=== PATIENT | male | born 1950 | race Caucasian/White ===

== ENCOUNTER 2019-03-25 01:12 | Inpatient (IN) | payer OTHER ==
[2019-03-25 01:39] LABS: #Eosinphils 0.1 thou/uL (0.0-0.7); #Lymphocytes 1.7 thou/uL (1.20-3.40); #Monocytes 0.6 thou/uL (0.11-0.59); #Neutrophils 8.6 thou/uL (1.40-6.50); %Basophils 0.4 % (0.0-1.0); %Eosinophils 0.6 % (0.0-10.0); %Lymphocytes 15.3 % (21.0-51.0); %Monocytes 5.6 % (0.0-10.0); Hemoglobin 16.6 g/dL (14.0-18.0); Mean Corpuscular HGB CONC 34.3 g/dL (32.0-36.0); Mean Corpuscular Hemoglobin 28.3 pg (27.0-31.0); Mean Corpuscular Volume 82.5 fL (78.0-98.0); Mean Platelet Volume 7.7 fL (7.4-10.4); Platelet Count 253 thou/uL (130-400); RBC Distribution Width 12.9 % (11.5-14.5); Red Blood Cell (RBC) Count 5.87 mill/uL (4.70-6.10); White Blood Cell (WBC) Count 11.1 thou/uL (4.8-10.8)
[2019-03-25 02:04] LABS: ALT (SGPT) 12 U/L (8-55); AST (SGOT) 10 U/L (5-34); Alkaline Phosphatase 162 U/L (40-150); Anion Gap 14 mmol/L (10-20); BUN (Urea Nitrogen) 11 mg/dL (8.4-25.7); Bilirubin, Total 0.5 mg/dL (0.2-1.2); Calc. Creatinine Clearance 0 mL/min (70-130); Calcium 9.6 mg/dL (7.8-10.44); Carbon Dioxide 25 mmol/L (23-31); Chloride 101 mmol/L (98-107); Estimated GFR-MDRD Greater than 90; Globulin 3.2 g/dL (2.4-3.5); Glucose 422 mg/dL (80-115); Potassium 4.3 mmol/L (3.5-5.1); Protein, Total 7.2 g/dL (5.8-8.1); Sodium 136 mmol/L (136-145)
[2019-03-25 02:27] LABS: CKMB 3.9 ng/mL (0-6.6)
--- NOTE | 2019-03-25 07:39 | RAD ---
XR Chest 1 View Portable HISTORY: Chest pain COMPARISON: None FINDINGS: The heart size is normal. The lungs are well expanded without pneumothorax or pleural effusions. Mild infiltrates are seen in the right mid and lower lung zones.
[2019-03-25 08:45] VITALS: BMI 27.2
[2019-03-25 09:50] LABS: Troponin I 0.586 ng/mL (< 0.028)
[2019-03-25] MEDS ORDERED: Nitroglycerin 0.4 MG TAB (25 Tab Bottle) PO PRN (09:52)
[2019-03-25] MEDS ORDERED: Dextrose 5% in Water 1,000 ML IV PRN (09:55)
[2019-03-25] MEDS ORDERED: HumaLOG 300 UNITS/3 ML VIAL SC PRN (09:55)
[2019-03-25] MEDS ORDERED: Dextrose 50% Abboject 50 ML SYRINGE SLOW IVP PRN (09:55)
[2019-03-25] MEDS ORDERED: Aspirin 325 MG TAB PO SCH (10:00)
[2019-03-25] MEDS ORDERED: Metoprolol Tartrate 25 MG TAB PO SCH (10:00)
[2019-03-25] MEDS ORDERED: Lisinopril 10 MG TAB PO SCH (10:00)
[2019-03-25] MEDS ORDERED: Aspirin 81 mg Enteric Coated Tablet PO SCH (10:00)
[2019-03-25] MEDS ORDERED: Nitroglycerin 2% Ointment 1 INCH/1 GM Packet TOP PRN (10:01)
[2019-03-25] MEDS ORDERED: Labetalol HCl 100 MG/20 ML VIAL SLOW IVP PRN (10:07)
[2019-03-25] MEDS ORDERED: Acetaminophen 500 MG TAB PO PRN (10:07)
[2019-03-25] MEDS ORDERED: Ondansetron PF 4 MG/2 ML Vial IVP PRN (10:07)
[2019-03-25] MEDS ORDERED: Enoxaparin Sodium 80 MG/0.8 ML SYRINGE SC SCH ×2 (10:15→21:00)
--- NOTE | 2019-03-25 10:59 | HP ---
CHIEF COMPLAINT: Chest pain. HISTORY OF PRESENT ILLNESS: Mr. Nina is a 68-year-old male, currently incarcerated at the [facility] in [place], with past medical history significant for untreated type 2 diabetes mellitus, previous MT x2 (unknown type), COPD, and hypertension, who presented to the hospital with complaint of chest pain. The patient stated that his chest pain started yesterday evening, and states that he felt it was instigated by some paint fumes. The patient describes the chest discomfort as pressure on the left side of his chest, which radiated to the left arm. Associated symptoms included shortness of breath. The patient denied any nausea, vomiting, or diaphoresis. He was given sublingual nitroglycerin at his senior care, however, this did not alleviate his pain, and EMS was called. Upon arrival to our facility, workup has included an EKG, which showed a left bundle branch block and sinus tachycardia with initial ventricular rate of 109. His initial troponin was indeterminate at 0.191, however, second troponin elevated at 0.586. At the time of my interview, the patient is chest pain free. The patient states that he had a stress test approximately 4 years ago. He states his last MT was approximately 10 years ago. He has been noncompliant with his diabetic medication, and refuses any type of medication at the present. He is unfamiliar with his cardiac history and does not recall left heart catheterization or stent placement in the past. REVIEW OF SYSTEMS: Twelve-point review of systems performed and is negative except that stated above. ALLERGIES: LEVOTHYROXINE. HOME MEDICATIONS: The patient states that he currently refuses all medications. His previous medication list included; 1. Aspirin 81 mg daily. 2. Glipizide 5 mg daily. 3. Lisinopril 10 mg daily. 4. Metoprolol tartrate 50 mg tablet one tablet p.o. b.i.d. 5. Pravastatin 40 mg at bedtime. The patient does state that he is compliant with aspirin 81, as well as sublingual nitroglycerin p.r.n. PAST MEDICAL HISTORY: COPD, MT x2, unknown type, untreated diabetes mellitus which is currently uncontrolled, history of hog attack rendering the patient nonambulatory and in a wheelchair secondary to back and hip injury, coronary artery disease, hypertension. SURGICAL HISTORY: The patient has had prior back and right hip surgery. He has had penile reconstruction/unknown, which the patient now uses straight catheter in which to void/urinate. SOCIAL HISTORY: The patient tells me that he has been incarcerated for the past ten and half years and has not had any cigarettes or used any alcohol or illicit drugs in that ten and half years. FAMILY HISTORY: Significant for coronary artery disease and peripheral vascular disease in his mother. PHYSICAL EXAMINATION: VITAL SIGNS: Blood pressure 180/96, pulse 110, O2 saturation is 94% on 2 L via nasal cannula, temperature 97.5. GENERAL: The patient is a middle-aged male, resting comfortably in bed, in no acute distress. HEENT: Head is atraumatic and normocephalic. Mucous membranes are moist. NECK: Trachea is midline. No obvious JVD. CV: S1 and S2. Regular rhythm, mildly tachycardic. No appreciable murmurs, rubs, or gallops. LUNGS: Regular respiratory rate and pattern, overall clear to auscultation bilaterally. ABDOMEN: Positive bowel sounds. Soft, nontender. EXTREMITIES: No edema. SKIN: Warm and dry. Multiple tattoos noted. EXTREMITIES: No edema. The patient is overall nonfocal. He does have bilateral lower extremity weakness, which is known. Cranial nerves 2 through 12 are grossly intact. LABORATORY DATA: White blood cell count 11.1, hemoglobin 16.6, hematocrit 48.4, platelet is 253. D-dimer negative at 0.37. Sodium 136, potassium 4.3, BUN 11, creatinine 0.81. AST 10, ALT 12, alkaline phosphatase 162. Troponin 0.191, 0.586 respectively. ASSESSMENT: 1. Acute coronary syndrome/[id number] myocardial infarction. 2. History of myocardial infarction x2. 3. Coronary artery disease. 4. Uncontrolled type 2 diabetes mellitus. 5. Hypertension. 6. Chronic obstructive pulmonary disease. 7. Nonambulatory state secondary to back injury. 8. Penile reconstruction/mesh placement, requiring straight cath for voiding. 9. History of noncompliance. 10. Sinus tachycardia. PLAN: At this time, we will treat the patient medically with aspirin, Lovenox, statin, beta shilpi, and NIR inhibitor. Cardiology consult has been placed. We will continue p.r.n. nitrates, and we will add sliding scale insulin. Further recommendations based on the patient's hospital course. Job ID: [id number]
[2019-03-25 11:25] LABS: Critical Call Chem Troponin I RESULT DECREASING; Troponin I 0.347 ng/mL (< 0.028)
[2019-03-25] MEDS: HumaLOG 300 UNITS/3 ML VIAL SC PRN ×2 (12:53→17:31)
[2019-03-25] MEDS ORDERED: Communication Order-Pharmacy FS PRN (17:30)
[2019-03-25] MEDS: Metoprolol Tartrate 25 MG TAB PO SCH (20:43)
[2019-03-25] MEDS: Atorvastatin Calcium 40 MG TAB PO SCH (20:43)
--- NOTE | 2019-03-25 23:46 | CON ---
DATE OF CONSULTATION: HISTORY OF PRESENT ILLNESS: Eliu Nina is a 68-year-old white male, currently incarcerated at the [facility] in [place]. He has had 2 previous myocardial infarctions, last of which was at least 8 or 9 years ago. He denies that he has ever had a cardiac catheterization. He started having onset of chest pain yesterday after smelling some paint fumes. States that he has had chest pressure radiating to his arms lasting 3 or 4 minutes. It would resolve and then recur again multiple times over 2 hours. He has had mildly abnormal troponin I. At present time, he is pain free. PAST MEDICAL HISTORY: Diabetes, hypercholesterolemia, hypertension, COPD, history of hog attack which rendered him nonambulatory and in a wheelchair secondary to back and hip injury, coronary artery disease. PAST SURGICAL HISTORY: Back surgery, right hip surgery, penile reconstruction and has had to use a straight catheter for voiding. MEDICATIONS: 1. Aspirin 81 daily. 2. Glipizide 5 mg daily. 3. Lisinopril 10 daily. 4. Metoprolol 50 mg b.i.d. 5. Pravastatin 40 at bedtime. ALLERGIES: LEVOTHYROXINE. SOCIAL HISTORY: He smoked in the past, was incarcerated for 10 years and has not smoked during that time. FAMILY HISTORY: Positive for coronary artery disease. REVIEW OF SYSTEMS: A 12-point review of systems unremarkable. PHYSICAL EXAMINATION: VITAL SIGNS: Blood pressure 133/79, pulse of 100. HEENT: PERRL. NECK: Supple. CHEST: Clear. CARDIAC: S1 and S2 normal without any S3, S4, or murmurs. Carotid upstrokes normal without bruits. ABDOMEN: Normal bowel sounds without tenderness. EXTREMITIES: No clubbing, cyanosis, or edema. NEUROLOGICAL: Grossly intact. SKIN: Warm and dry. LABORATORY DATA: EKG revealed sinus tachycardia with rate of 109 per minute and left bundle-branch block. White count 1100, hemoglobin 16.6, hematocrit 48.4, platelets 253,000. D-dimer 0.37. Sodium 136, potassium 4.3, chloride 101, carbon dioxide 25, BUN 11, and creatinine 0.81. Blood sugars have been consistently around 400. Troponin I is up to 0.586. BNP 107.8. Echocardiogram revealed ejection fraction of 50% to 55% with mild mitral regurgitation and mild tricuspid regurgitation. IMPRESSION: 1. History most consistent with acute coronary syndrome. 2. History of prior myocardial infarctions, although it sounds as if he has never undergone cardiac catheterization. 3. Left bundle-branch block. 4. Hypertension. 5. Hypercholesterolemia. 6. Diabetes, very poorly controlled. 7. Former smoker. 8. Positive family history. PLAN: Fasting lipid profile will be obtained. It is recommended that Mr. Nina undergo cardiac catheterization. Risks were discussed including , myocardial infarction, dye reaction, vascular injury, CVA, transfusion, limb loss, renal loss, etc. Risks of stent placement discussed including , myocardial infarction, emergent CABG, restenosis, stent thrombosis, vessel perforation, etc. He does not have any upcoming surgeries and has never had a stroke or gastrointestinal bleeding and overall is recommended that a drug-eluting stent be placed if required. Catheterization be scheduled for the morning, however, he seems somewhat reluctant to proceed with this. Job ID: [id number] MTDD
[2019-03-26] MEDS: Aspirin 81 mg Enteric Coated Tablet PO SCH (05:30)
[2019-03-26] MEDS: Lisinopril 10 MG TAB PO SCH (05:30)
[2019-03-26] MEDS: Metoprolol Tartrate 25 MG TAB PO SCH ×2 (05:31→21:41)
[2019-03-26 05:48] LABS: Cardiac Risk 5.4 (Less than 4.5)
[2019-03-26] MEDS ORDERED: Sodium Chloride 0.9% 1,000 ML IV SCH ×2 (06:00→09:52)
[2019-03-26] MEDS ORDERED: Heparin 10,000 UNITS/1 ML VIAL ONE (08:14)
[2019-03-26] MEDS ORDERED: Lidocaine 1% (PF) 30 ML VIAL ONE (08:15)
[2019-03-26] MEDS ORDERED: Protamine Sulfate 50 MG/5 ML VIAL ONE ×2 (08:17→09:30)
[2019-03-26] MEDS ORDERED: Midazolam HCl 2 mg/2 ml Vial ONE (09:04)
[2019-03-26] MEDS ORDERED: Fentanyl 100 MCG/2 ML VIAL ONE (09:04)
[2019-03-26] MEDS ORDERED: Iopamidol 370 76% 50 ML VIAL FS ONE (09:30)
[2019-03-26] MEDS ORDERED: Iopamidol 370 76% 100 ML VIAL ONE (09:30)
[2019-03-26] MEDS ORDERED: Sodium Chloride 0.9% 200 ML IV PRN (09:50)
[2019-03-26] MEDS ORDERED: Acetaminophen/Codeine 30-300mg Tablet PO PRN ×2 (09:50)
[2019-03-26] MEDS ORDERED: Nitroglycerin 0.4 MG TAB (25 Tab Bottle) SL PRN (09:50)
--- NOTE | 2019-03-26 15:48 | CON ---
DATE OF CONSULTATION: 03/26/2019 REQUESTING PHYSICIAN: Dr. Howard. CHIEF COMPLAINT: Chest pain. HISTORY OF PRESENT ILLNESS: The patient is a 68-year-old diabetic man, who describes having had 2 previous heart attacks. The last one being around 8 or 9 years ago. He presented to the hospital after having developed chest pressure going into his left arm that lasted for a few minutes. It would spontaneously resolve, but then it recurred several times. His initial troponin upon arrival in the emergency room was elevated. The patient says that the symptoms that he had a couple of days ago were similar to those associated with his heart attacks, but that he had not been having any anginal symptoms up to that point. PAST MEDICAL HISTORY: Significant for diabetes, hypercholesterolemia, hypertension, and COPD. The patient apparently was attacked by hogs causing serious injuries that essentially are severe arthritic injuries as a residual. He is able to bear weight and takes stepper to, but he is not particularly ambulatory and uses a wheelchair. He required hip surgery, back surgery, and penile reconstruction, and he does self catheterization to void. He is continent of urine and stool. MEDICATIONS: 1. Baby aspirin a day. 2. Glipizide 5 mg a day. 3. Lisinopril 10 mg a day. 4. Lopressor 50 mg b.i.d. 5. Pravastatin 40 mg at bedtime. ALLERGIES: HE REPORTS ALLERGY TO SYNTHROID. THE PATIENT QUIT SMOKING ABOUT 10 YEARS AGO AT THE START OF HIS PRESENT PERIOD OF INCARCERATION. FAMILY HISTORY: Significant for coronary artery disease. REVIEW OF SYSTEMS: Negative for any eye, speech, facial, or extremity symptoms consistent with TIA. Negative for any urinary or fecal incontinence. It is negative for any paresthesias in his feet. Negative for any shortness of breath. PHYSICAL EXAMINATION: GENERAL: He appears older than his stated age. Height is 5 feet 6 inches, weight is 169 pounds. VITAL SIGNS: On arrival in the emergency room, his heart rate was 109, blood pressure 191/109. Currently, his heart rate is 78, blood pressure 154/86, his temperature is 97.6, and O2 sats are 94% to 98% on 2 L nasal cannula. HEENT: He has no xanthelasma. Poor dentition. NECK: He has no JVD. No carotid bruits. CHEST: Clear to auscultation. He is able to blow out forcefully against my hand. HEART: He has regular rate and rhythm without obvious murmur or gallop. ABDOMEN: Soft and nontender without masses or bruits. EXTREMITIES: He has palpable radial and femoral pulses. I thought I was able to appreciate a right popliteal pulse, but not a left. I was not able to appreciate dorsalis pedis or posterior tibial pulses. He has good saphenous vein at the ankles. He has good capillary refill in his toes. No clubbing, cyanosis, or edema. His chest x-ray was mildly suggestive of pulmonary edema. LABORATORY DATA: Hemoglobin 16.6, hematocrit 48.4, platelets 253,000. Electrolytes were normal. Glucose 422, BUN 11, creatinine 0.81. Albumin was 4.0, calcium 9.6. LFTs were normal. Fasting triglycerides 160, cholesterol 207, LDL 137, HDL 38. His initial troponin was 0.191. It peaked about 6 hours later at 0.586 and roughly 2 hours after that was 0.347. His BNP was 107.8. His blood sugars have now come down into the 195 to 230 range. His cardiac catheterization shows a right-dominant system. His circumflex is diminutive system with a very small OM1 and then a circumflex that essentially terminates very shortly after that. He has a relatively small LAD with a high-grade lesion proximally, a small diagonal and then a long 50% or 60% lesion in the midportion. The right coronary has a very large posterolateral branch. There is an 80% or 90% mid right coronary lesion. LVEF is around 40% with LVEDP around 20. He had 1 to 2+ mitral regurgitation. IMPRESSION AND RECOMMENDATIONS: His anatomy is a little bit unusual in that circumflex is diminutive and he has a large posterolateral branch coming off the right that would serve that circumflex distribution. Functionally, this is comparable to 3-vessel coronary artery disease with low normal and mildly decreased LV function. My chief concern about his recovery has to do with his limited mobility. From a technical standpoint, his LAD is somewhat small, but he is certainly a technically reasonable candidate for CABG and that is what I have recommended; however, the patient has concerns about higher prevalence of Staphylococcus. In the wheelchair dorm at the residential unit, where he is incarcerated and he is concerned about how undergoing bypass surgery will affect his upcoming plan, released to some home incarceration program and at the moment he is refusing surgery. Job ID: [id number]
--- NOTE | 2019-03-26 17:26 | PRG ---
DATE OF SERVICE: 03/26/2019 SUBJECTIVE: Mr. Alvarez is a 68-year-old male with past medical history significant for previous [place] in the remote past; diabetes mellitus, untreated; and hypertension, who presented to the hospital with complaints of chest discomfort. The patient has been admitted with non STEMI. He underwent left heart catheterization today, which did reveal triple-vessel disease with CABG being recommended. The patient is seen post catheterization and is resting comfortably. He has no complaints at this time. He denies any active chest pain or shortness of breath. He denies any pain from his right femoral access site. He is reluctant about the risks of surgery. OBJECTIVE: VITAL SIGNS: Blood pressure 139/79, pulse is 77, respirations are 16, and O2 saturation is 97% on 2 L via nasal cannula. GENERAL: This patient is a middle-aged male, lying flat in bed, in no acute distress. NECK: Trachea is midline. No JVD. CV: S1 and S2. Regular rate and rhythm. No appreciable murmurs, rubs, or gallops. LUNGS: Regular respiratory rate and pattern, overall clear. ABDOMEN: Positive bowel sounds. Soft, nontender. EXTREMITIES: No edema. Right femoral access site is soft, shows no evidence of hematoma, no bruit. SKIN: Warm and dry. NEUROLOGIC: Cranial nerves 2 through 12 are grossly intact. The patient overall nonfocal. Does have bilateral lower extremity weakness, which is known finding. LABORATORY DATA: Triglycerides 160, cholesterol 207, LDL is 137, and HDL is 38. ASSESSMENT: 1. Acute coronary syndrome/non ST-elevation myocardial infarction, peak troponin 0.586. 2. Severe triple-vessel coronary artery disease with preserved ejection fraction of 50% to 55% per echocardiogram. Coronary artery bypass grafting has been recommended. 3. Type 2 diabetes mellitus. 4. Hypertension. 5. Hyperlipidemia. 6. Chronic obstructive pulmonary disease. 7. Nonambulatory state secondary to back injury. 8. Penile reconstruction/mesh placement, requiring straight cath for voiding. 9. History of noncompliance. PLAN: At this time, we will await further recommendations for Cardiology. Certainly, if the patient continues to refuse surgery, it is likely we will proceed with medical management to include dual anti-platelet therapy and will await Cardiology recommendations regarding this. We will continue sliding scale insulin. Continue aspirin, statin, beta-shilpi, and NIR inhibitor. We would expect possible discharge tomorrow if the patient continues to refuse surgical intervention. Job ID: [id number]
[2019-03-26] MEDS: HumaLOG 300 UNITS/3 ML VIAL SC PRN (17:39)
[2019-03-26] MEDS: Atorvastatin Calcium 40 MG TAB PO SCH (21:41)
[2019-03-27 05:47] LABS: Anion Gap 11 mmol/L (10-20); BUN (Urea Nitrogen) 11 mg/dL (8.4-25.7); Calc. Creatinine Clearance 131 mL/min (70-130); Calcium 8.8 mg/dL (7.8-10.44); Carbon Dioxide 24 mmol/L (23-31); Chloride 105 mmol/L (98-107); Estimated GFR-MDRD Greater than 90; Glucose 157 mg/dL (80-115); Potassium 3.9 mmol/L (3.5-5.1); Sodium 136 mmol/L (136-145)
[2019-03-27] MEDS: Metoprolol Tartrate 25 MG TAB PO SCH (09:23)
[2019-03-27] MEDS: Lisinopril 10 MG TAB PO SCH (09:23)
[2019-03-27] MEDS: Aspirin 81 mg Enteric Coated Tablet PO SCH (09:23)
[2019-03-27 13:02] VITALS: BP 112/59; TEMP 98.8
[2019-03-27] MEDS: HumaLOG 300 UNITS/3 ML VIAL SC PRN (13:02)
== END 2019-03-27 17:17 | DRG 282 ==
LOC: ERS 01:12 → OBSVTOIN 03:59 → ERHOLD 03:59 → 2SW 08:15 → 2NO 19:03
PROVIDERS: ADMIT Internal Medicine; ATTEND Internal Medicine
DX: I21.4 Non-ST elevation (NSTEMI) myocardial infarction (principal); J44.9 Chronic obstructive pulmonary disease, unspecified; I10 Essential (primary) hypertension; I25.10 Atherosclerotic heart disease of native coronary artery without angina pectoris; E78.00 Pure hypercholesterolemia, unspecified; I44.7 Left bundle-branch block, unspecified; E11.65 Type 2 diabetes mellitus with hyperglycemia; Z91.14 Patient's other noncompliance with medication regimen; Z88.1 Allergy status to other antibiotic agents; Z79.84 Long term (current) use of oral hypoglycemic drugs; Z79.82 Long term (current) use of aspirin; Z99.3 Dependence on wheelchair; Z87.891 Personal history of nicotine dependence; Z88.8 Allergy status to other drugs, medicaments and biological substances; I25.2 Old myocardial infarction
CPT/HCPCS: 36415; 36416; 71045; 80048; 80053; 80061; 82553; 83880; 84484; 85025; 85347; 85379; 93005; 93306; 94760; C1769; J1644; J1650; J2001; J2250; J2720; J3010; Q9967